=== PATIENT | female | born 1970 | race Caucasian/White ===

== ENCOUNTER 2016-10-04 23:16 | Emergency (ER) | payer OTHER ==
[~2016-10-04] VITALS: Ht 162.6 cm; Wt 94.0 kg
[2016-10-04 23:21] VITALS: Ht 162.6 cm; Wt 94.0 kg
[2016-10-05] MEDS ORDERED: SOD CHLORIDE 0.9% 1,000 ML IV STA (01:58)
[2016-10-05] MEDS ORDERED: morphine 4 MG/ML VIAL IV STA (01:58)
[2016-10-05] MEDS ORDERED: ONDANSETRON 4 MG INJ IV STA ×2 (01:58→02:54)
--- NOTE | 2016-10-05 02:49 | RADRPT ---
PROCEDURE: Right upper quadrant ultrasound. CLINICAL INDICATION: Abdominal pain. TECHNIQUE: Multiple real-time longitudinal and transverse images of the right upper quadrant of th e abdomen were acquired utilizing a curved array transducer. Images were reviewed on a high-resoluti on PACS workstation. COMPARISON: None. FINDINGS: The pancreas body is unremarkable. The pancreas head and tail are not well seen. The liver is normal in echogenicity. The liver measures 16.4 cm in length. No hepatic lesion or in trahepatic biliary ductal dilatation is seen. The portal vein is patent with hepatopetal flow. There is a 1.9 cm stone in the gallbladder neck. A sludge ball is also identified within the gallbl adder lumen. The gallbladder wall is not thickened. There is no pericholecystic fluid. The common b ile duct measures 4 mm in diameter, not dilated. The right kidney measures 10.7 cm in length. Renal echogenicity is normal. There is no hydronephro sis, urinary calculus, or renal mass. There is a 0.9 cm simple right renal cyst. The visualized portions of the aorta and IVC are unremarkable. IMPRESSION: 1. Cholelithiasis without evidence of cholecystitis. 2. No biliary dilatation. RPTAT: HTAR .Ketan Sparks MD, Date Time Electronically viewed and signed by .Ketan Sparks MD, on 10/05/2016 02:49 .R/
[2016-10-05] MEDS ORDERED: HYDROmorphONE 1 MG/ML SYG IV STA (02:54)
[2016-10-05 03:11] LABS: ADD UMIC YES; URINE BILIRUBIN (Dip) NEGATIVE (NEGATIVE); URINE BLOOD (Dip) TRACE (NEGATIVE); URINE COLOR LT. YELLOW (YELLOW); URINE GLUCOSE (Dip) NEGATIVE (NEGATIVE); URINE KETONES (Dip) NEGATIVE (NEGATIVE); URINE LEUKOCYTE ESTERASE (Dip) NEGATIVE (NEGATIVE); URINE NITRITE (Dip) NEGATIVE (NEGATIVE); URINE TOTAL PROTEIN (Dip) NEGATIVE (NEGATIVE); URINE UROBILINOGEN (Dip) 0.2 E.U./dL (0.1-1.0)
[2016-10-05 03:14] LABS: ALBUMIN 4.3 g/dl (3.3-4.9)
[2016-10-05 03:16] LABS: CREATININE 0.64 mg/dl (0.44-1.00)
[2016-10-05 03:17] LABS: ALBUMIN/GLOBULIN RATIO 1.26; CALCIUM 9.1 mg/dl (8.4-10.2); TOTAL PROTEIN 7.7 g/dl (6.1-8.1)
[2016-10-05 03:30] LABS: BASOPHIL # 0.1 10^3/ul (0.0-0.1); BASOPHILS % 0.5 % (0.0-2.0); EOSINOPHILS # 0.4 10^3/ul (0.0-0.5); EOSINOPHILS % 3.1 % (0.0-7.0); HEMATOCRIT 38.5 % (37.0-47.0); LYMPHOCYTES # 3.5 10^3/ul (0.8-2.9); LYMPHOCYTES % 31.2 % (15.0-51.0); MEAN CORPUSCULAR HEMOGLOBIN 30.2 pg (29.0-33.0); MEAN CORPUSCULAR HGB CONC 33.7 g/dl (32.0-37.0); MEAN CORPUSCULAR VOLUME 89.4 fl (82.0-101.0); MEAN PLATELET VOLUME 8.9 fl (7.4-10.4); MONOCYTE # 0.7 10^3/ul (0.3-0.9); MONOCYTES % 6.4 % (0.0-11.0); NEUTROPHIL # 6.6 10^3/ul (1.6-7.5); NEUTROPHILS % 58.8 % (39.0-77.0); PLATELET COUNT 326 10^3/UL (140-440); RED CELL DISTRIBUTION WIDTH 13.8 % (11.5-14.5); UNCORRECTED WBC 11.3 10^3/ul (4.8-10.8); WHITE BLOOD COUNT 11.3 10^3/ul (4.8-10.8)
[2016-10-05 03:32] LABS: CONDITION 1
[2016-10-05 03:43] LABS: BACTERIA,URINE MODERATE; SQUAMOUS EPITHELIAL CELL,UR FEW; URINE RBCS 0-2 /HPF (0)
[2016-10-05] MEDS ORDERED: ONDA4TAB14 PO (03:46)
[2016-10-05] MEDS ORDERED: HYDR-902 PO (03:46)
[2016-10-05 03:54] VITALS: BP 124/70; PULSE 70; RESP 16; TEMP 98.4
--- NOTE | 2016-10-05 03:54 | ERD ---
ER Documentation Chief Complaint Date/Time DATE: 10/05/16 TIME: 03:52 Chief Complaint RUQ abd pain - hx- gall stones HPI Patient is a 45-year-old female who has a history of gallstones complaining of right upper quadrant abdominal pain. Pain is 10 out of 10 and has been going on for 2 days but got worse this evening. At 8 PM she took Tylenol 3 which did not help. She admits to nausea but no vomiting. Denies fever. Pain is worse with food. Denies any urinary symptoms. ROS All systems reviewed and are negative except as per history of present illness. Medications Home Meds Active Scripts Ondansetron (Ondansetron Odt) 4 Mg Tab.rapdis, 4 MG PO Q6H Y for NAUSEA AND/OR VOMITING, #20 TAB Prov:HEIDE RIVERA PA-C 10/05/16 Hydrocodone/Acetaminophen ([place] 10-325 Tablet) 1 Each Tablet, 1 TAB PO Q6H Y for PAIN, #20 TAB Prov:HEIDE RIVERA PA-C 10/05/16 Allergies Allergies: Coded Allergies: pseudoephedrine (Verified Allergy, Unknown, 10/04/16) PMhx/Soc History of Surgery: No Anesthesia Reaction: No Hx Neurological Disorder: No Hx Respiratory Disorders: No Hx Cardiac Disorders: No Hx Psychiatric Problems: No Hx Miscellaneous Medical Probl: No Hx Substance Use: No Hx Tobacco Use: No Smoking Status: Never smoker FmHx Family History: No diabetes Physical Exam Vitals Vital Signs Date Time Temp Pulse Resp B/P Pulse Ox O2 Delivery O2 Flow Rate FiO2 10/04/16 23:21 98.4 87 20 123/64 99 Physical Exam General: well developed, well nourished, alert, nontoxic, no distress Head: normocephalic, atraumatic Neck: Supple, nontender, no lymphadenopathy, no midline tenderness Respiratory: Clear to auscaultation bilaterally, speaks in full sentences, no use of accesory muscles or labored breathing, no rales, ronchi, or wheezing Cardiovascular: RRR, No murmurs GI: soft, , non distended, positive murphys sign, negative mcburneys point tenderness, no cva tenderness bilaterally, no rebound or guarding Back: no midline tenderness, no step offs or bony abnormalities, sensation to light touch in tact Result Diagram: 10/05/1622910/05/16229 Results 24 hrs Laboratory Tests Test 10/05/16 02:15 10/05/16 02:30 Urine Bacteria MODERATE Urine Bilirubin NEGATIVE Urine Clarity CLEAR Urine Color LT. YELLOW Urine Glucose NEGATIVE% Urine Hemoglobin TRACE Urine Ketones NEGATIVE Urine Leukocyte Esterase NEGATIVE Urine Microscopic RBC 0-2/HPF Urine Microscopic WBC 0-2/HPF Urine Nitrite NEGATIVE Urine Specific Palo >=1.030 Urine Squamous Epithelial Cells FEW Urine Total Protein NEGATIVE Urine Urobilinogen 0.2 E.U./dL Urine pH 6.0 Alanine Aminotransferase (ALT/SGPT) 38IU/L Albumin 4.3g/dl Albumin/Globulin Ratio 1.26 Alkaline Phosphatase 95IU/L Anion Gap 19 Aspartate Amino Transf (AST/SGOT) 21IU/L Basophils # 0.110^3/ul Basophils % 0.5% Blood Urea Nitrogen 12mg/dl Calcium Level 9.1mg/dl Carbon Dioxide Level 22mmol/L Chloride Level 108mmol/L Creatinine 0.64mg/dl Direct Bilirubin 0.00mg/dl Eosinophils # 0.410^3/ul Eosinophils % 3.1% Globulin 3.40g/dl Glucose Level 86mg/dl Hematocrit 38.5% Hemoglobin 13.0g/dl Indirect Bilirubin 0.0mg/dl Lipase 106U/L Lymphocytes # 3.510^3/ul Lymphocytes % 31.2% Mean Corpuscular Hemoglobin 30.2pg Mean Corpuscular Hemoglobin Concent 33.7g/dl Mean Corpuscular Volume 89.4fl Mean Platelet Volume 8.9fl Monocytes # 0.710^3/ul Monocytes % 6.4% Neutrophils # 6.610^3/ul Neutrophils % 58.8% Nucleated Red Blood Cells # 0.010^3/ul Nucleated Red Blood Cells % 0.0/100WBC Platelet Count 74381^3/UL Potassium Level 4.0mmol/L Red Blood Count 4.3010^6/ul Red Cell Distribution Width 13.8% Sodium Level 145mmol/L Total Bilirubin 0.0mg/dl Total Protein 7.7g/dl White Blood Count 11.310^3/ul Current Medications Medications (Trade) Dose Ordered Sig/Danitza Route PRN Reason Start Time Stop Time Status Last Admin Dose Admin Sodium Chloride (NS) 1,000 ml @ 1,000 mls/hr Q1H STAT IV 10/05/16 01:58 10/05/16 02:57 DC 10/05/16 02:19 Morphine Sulfate (morphine) 4 mg ONCE STAT IV 10/05/16 01:58 10/05/16 02:00 DC 10/05/16 02:19 Ondansetron HCl (Zofran Inj) 4 mg ONCE STAT IV 10/05/16 01:58 10/05/16 02:01 DC 10/05/16 02:19 Hydromorphone HCl (Dilaudid) 1 mg ONCE STAT IV 10/05/16 02:54 10/05/16 02:55 DC 10/05/16 03:00 Ondansetron HCl (Zofran Inj) 4 mg ONCE STAT IV 10/05/16 02:54 10/05/16 02:55 DC 10/05/16 03:01 Procedures/MDM 45-year-old female presents for right upper quadrant abdominal pain. Her vital signs are all within normal limits and she is afebrile. Her labs were unremarkable. Ultrasound did show gallstones without any evidence of cholecystitis. She was given IV pain medications here and felt better. She was discharged with copy of her labs and ultrasound reports that she can follow with her primary care doctor for outpatient referral to general surgery for cholecystectomy. She was also given prescription for Zofran and [place] for pain control. Recommended this patient follow up with her primary care doctor within 48 hours or return to the emergency room for any worsening of symptoms. However this time I do believe there is suitable for outpatient management. I answered all their questions and they agreed with the plan and were discharged home. Departure Diagnosis: Primary Impression: Biliary colic Condition: Stable Patient Instructions: Biliary Colic With Gallstone (Confirmed) Additional Instructions: Call your primary care doctor TOMORROW for an appointment during the next 1-2 days.See the doctor sooner or return here if your condition worsens before your appointment time. HEIDE RIVERA PA-C Oct 05, 2016 03:54
== END 2016-10-05 04:00 | disposition home or self-care (01) ==
LOC: FTE 23:16
DX: K80.50 Calculus of bile duct without cholangitis or cholecystitis without obstruction (principal); R11.0 Nausea
CPT/HCPCS: 36415; 76705; 80053; 81001; 83690; 85025; 96374; 96375; 96376; J1170; J2270; J2405; J7030; Z7502; 81003

== ENCOUNTER 2017-12-24 05:15 | Emergency (ER) | END 2017-12-24 10:34 | disposition home or self-care (01) ==

== ENCOUNTER 2018-04-20 22:38 | Emergency (ER) | END 2018-04-21 01:03 | disposition home or self-care (01) ==

== ENCOUNTER 2018-06-17 23:10 | Emergency (ER) | END 2018-06-18 03:07 | disposition home or self-care (01) ==

== ENCOUNTER 2018-08-04 02:30 | Emergency (ER) | END 2018-08-04 04:00 | disposition home or self-care (01) ==

== ENCOUNTER 2018-10-08 14:05 | Emergency (ER) | payer OTHER ==
[~2018-10-08] VITALS: Wt 100.6 kg
[~2018-10-08 14:05] MED LIST: ALBU18HF INHALATION; AZIT250T PO; DICY10CA40 PO; ONDA4TAB14 PO; PRED20TA PO; TRAM50TA2 PO
--- NOTE | 2018-10-08 16:55 | ERD ---
ER Documentation Chief Complaint Chief Complaint ap HPI The patient is a 47-year-old female, presenting to the ER because of epigastric abdominal pain that began around 11 am. She had similar symptom previously, denies fever, chills, neck pain, chest pain, dyspnea, worse with eating, complains of intermittent diarrhea, denies hematemesis/hematochezia, dysuria. She does not smoke nor drink Past medical history: Cholelithiasis Past surgical history: 3 ROS All systems reviewed and are negative except as per history of present illness. Medications Home Meds Active Scripts Ondansetron (Ondansetron Odt) 4 Mg Tab.rapdis, 4 MG PO Q6H PRN for NAUSEA AND/OR VOMITING, #10 TAB Prov:MARIBELL YOUNG MD 10/08/18 Hydrocodone/Acetaminophen ([place] 5-325 Tablet) 1 Each Tablet, 1 TAB PO Q6H PRN for PAIN, #7 TAB Prov:MARIBELL YOUNG MD 10/08/18 Albuterol Sulfate* (Ventolin HFA*) 18 Gm Hfa.aer.ad, 2 PUFF INHALATION Q4H, #1 INHALER Prov:JEFF GUILLEN 08/04/18 Prednisone* (Prednisone*) 20 Mg Tab, 40 MG PO DAILY for 4 Days, TAB Prov:JEFF GUILLEN 08/04/18 Azithromycin* (Zithromax*) 250 Mg Tablet, 250 MG PO .ZPACK DIRECTED, #6 TAB TAKE 500 MG (2 TABS) THE FIRST DAY THEN 250 MG (1 TAB) DAYS 2-5 Prov:JEFF GUILLEN 08/04/18 Dicyclomine HCl (Dicyclomine HCl) 10 Mg Capsule, 10 MG PO TID PRN for ABDOMINAL CRAMPING, #20 CAP Prov:JOSHUA GOULD NP 06/18/18 Ondansetron (Ondansetron Odt) 4 Mg Tab.rapdis, 4 MG PO Q6H PRN for NAUSEA AND/OR VOMITING, #10 TAB Prov:JOSHUA GOULD NP 06/18/18 Tramadol HCl (Tramadol HCl) 50 Mg Tablet, 50 MG PO Q6 PRN for SEVERE PAIN LEVEL 7-10, #20 TAB Prov:JOSHUA GOULD NP 06/18/18 Tramadol HCl (Tramadol HCl) 50 Mg Tablet, 50 MG PO Q6 PRN for SEVERE PAIN LEVEL 7-10, #20 TAB Prov:JOSHUA GOULD NP 04/21/18 Reported Medications [none] Unknown Strength No Conflict Check 04/20/18 Allergies Allergies: Coded Allergies: pseudoephedrine (Verified Allergy, Unknown, 04/20/18) PMhx/Soc History of Surgery: Yes (c-sections x 3 ) Anesthesia Reaction: No Hx Neurological Disorder: No Hx Respiratory Disorders: No Hx Cardiac Disorders: No Hx Psychiatric Problems: No Hx Miscellaneous Medical Probl: Yes (GALLSTONES) Hx Alcohol Use: Yes (rare) Hx Substance Use: No Hx Tobacco Use: Yes Physical Exam Vitals Vital Signs Date Temp Pulse Resp B/P (MAP) Pulse Ox O2 O2 Flow FiO2 Time Delivery Rate 10/08/18 80 20 132/76 99 Room Air 18:13 (94) 10/08/18 97.2 78 18 130/77 99 14:08 (94) Physical Exam Const: No acute distress. Head: Atraumatic. Eyes: Normal Conjunctiva. ENT: Normal External Ears, Nose and Mouth. Neck: Full range of motion. No meningismus. Resp: Clear to auscultation bilaterally. Cardio: Regular rate and rhythm. Abd: Soft, non distended, normal bowel sounds, mild epigastric tenderness, no right lower quadrant/right upper quadrant/rigidity/rebound/CVA tenderness Skin: No petechiae or rashes. Back: No midline or flank tenderness. Ext: No cyanosis, or edema. Neur: Awake and alert. No focal deficit Psych: Normal Mood and Affect. Result Diagram: 10/08/18 1715 10/08/18 171 Results 24 hrs Laboratory Tests Test 10/08/18 17:15 10/08/18 17:28 10/08/18 17:31 White Blood Count 7.4 10^3/ul Red Blood Count 4.14 10^6/ul Hemoglobin 12.4 g/dl Hematocrit 36.9 % Mean Corpuscular Volume 89.1 fl Mean Corpuscular Hemoglobin 30.0 pg Mean Corpuscular Hemoglobin Concent 33.6 g/dl Red Cell Distribution Width 12.6 % Platelet Count 283 10^3/UL Mean Platelet Volume 9.3 fl Immature Granulocytes % 0.100 % Neutrophils % 58.0 % Lymphocytes % 31.9 % Monocytes % 7.0 % Eosinophils % 2.7 % Basophils % 0.3 % Nucleated Red Blood Cells % 0.0 /100WBC Immature Granulocytes # 0.010 10^3/ul Neutrophils # 4.3 10^3/ul Lymphocytes # 2.4 10^3/ul Monocytes # 0.5 10^3/ul Eosinophils # 0.2 10^3/ul Basophils # 0.0 10^3/ul Nucleated Red Blood Cells # 0.0 10^3/ul Sodium Level 138 mmol/L Potassium Level 4.1 mmol/L Chloride Level 107 mmol/L Carbon Dioxide Level 23 mmol/L Anion Gap 8 Blood Urea Nitrogen 14 mg/dl Creatinine 0.60 mg/dl Est Glomerular Filtrat Rate mL/min > 60 mL/min Glucose Level 97 mg/dl Calcium Level 9.4 mg/dl Total Bilirubin 0.1 mg/dl Direct Bilirubin 0.00 mg/dl Indirect Bilirubin 0.1 mg/dl Aspartate Amino Transf (AST/SGOT) 26 IU/L Alanine Aminotransferase (ALT/SGPT) 32 IU/L Alkaline Phosphatase 85 IU/L Total Protein 7.2 g/dl Albumin 4.1 g/dl Globulin 3.10 g/dl Albumin/Globulin Ratio 1.32 Lipase 34 U/L Bedside Urine pH (LAB) 5.5 Bedside Urine Protein (LAB) 1+ Bedside Urine Glucose (UA) Negative Bedside Urine Ketones (LAB) Negative Bedside Urine Blood 3+ Bedside Urine Nitrite (LAB) Negative Bedside Urine Leukocyte Esterase (L Negative POC Beta HCG, Qualitative NEGATIVE Current Medications Medications Dose Sig/Danitza Start Time Status Last (Trade) Ordered Route PRN Stop Time Admin Dose Reason Admin Sodium 1,000 ml @ Q1H ONCE 10/08/18 DC 10/08/18 Chloride 1,000 mls/hr IV 17:00 10/08/18 17:19 17:59 Morphine 4 mg ONCE STAT 10/08/18 DC 10/08/18 Sulfate IV 17:00 10/08/18 17:19 (morphine) 17:02 Ondansetron 4 mg ONCE STAT 10/08/18 DC 10/08/18 HCl (Zofran IV 17:00 10/08/18 17:19 Inj) 17:02 Procedures/[place]M [place] [address] Radiology Main Line: [phone] DIAGNOSTIC IMAGING REPORT Patient: MATTHIAS ROCK : 1970 Age: 47 Sex: F [id number] [id number] DOS: 10/08/18 1658 Ordering MD: LYLY MARSHALL MD Location: E/R Room/Bed: PROCEDURE: US Abdomen (right upper quadrant). CLINICAL INDICATION: Abdominal pain. TECHNIQUE: Multiple real-time longitudinal and transverse images of the right upper quadrant of the abdomen were acquired utilizing a curved array transducer. Images were reviewed on a high-resolution PACS workstation. COMPARISON: None FINDINGS: The liver is normal in size with a coarsened echotexture suggesting steatosis. without focal mass or intrahepatic biliary dilatation. There is normal hepatopedal flow within the main portal vein. The gallbladder is well displayed and contains a moderate size echogenic, shadowing calculus. There is no wall thickening. The common bile duct measures 3.0 mm in maximal dimension. The visualized portions of the pancreas are unremarkable with obscuration of the tail of the pancreas. No free fluid is identified. The right kidney measures 10.3 cm in length. There is normal echogenicity within the right kidney. There is no perinephric fluid collection. No hydronephrosis, mass, or calculus is seen. IMPRESSION: 1. Coarse hepatic echotexture suggesting diffuse steatosis. 2. Cholelithiasis without evidence of gallbladder wall thickening or biliary tree dilatation. RPTAT: AACC Physician Moshe Date Time Electronically viewed and signed by Physician Moshe on 10/08/2018 17:32 JH/ CC: LYLY MARSHALL MD [id number] MEDICAL MAKING DECISION: The patient is a 47-year-old female, presenting with acute biliary colic, hematuria. She was treated with morphine 4 mg IV for pain, Zofran 4 mg IV for nausea, 1 L normal saline for clinical dehydration with good response, is stable for outpatient follow-up The differential diagnoses considered include but are not limited to cholelithiasis, cholecystitis, choledocholithiasis, cholangitis, pancreatitis, hepatitis, gastritis, peptic ulcer disease, gastric ulcer, appendicitis, cystitis, diverticulitis, partial small bowel obstruction. Departure Diagnosis: Primary Impression: Biliary colic Additional Impression: Hematuria Condition: Good Comments She was discharged with 5 tablets of [place], Zofran ODT I discussed the findings with the patient. I advised the patient to follow-up with the local surgeon physician Dr Gray in about 2-3 days, sooner if needed and return if any concern. Disclaimer: Inadvertent spelling and grammatical errors are likely due to EHR/dictation software use and do not reflect on the overall quality of patient care. Also, please note that the electronic time recorded on this note does not necessarily reflect the actual time of the patient encounter. MARIBELL YOUNG MD Oct 08, 2018 16:55
[2018-10-08] MEDS ORDERED: morphine 4 MG/ML VIAL IV STA (17:00)
[2018-10-08] MEDS ORDERED: ONDANSETRON 4 MG INJ IV STA (17:00)
[2018-10-08] MEDS ORDERED: SOD CHLORIDE 0.9% 1,000 ML IV ONE (17:00)
[2018-10-08] MEDS ORDERED: HYDR-4011 PO (18:01)
[2018-10-08] MEDS ORDERED: ONDA4TAB14 PO (18:01)
[2018-10-08 18:13] VITALS: BP 132/76; PULSE 80; RESP 20
== END 2018-10-08 18:02 | disposition home or self-care (01) ==
LOC: E/R 14:05
DX: K80.50 Calculus of bile duct without cholangitis or cholecystitis without obstruction (principal); R31.9 Hematuria, unspecified; Z87.891 Personal history of nicotine dependence
CPT/HCPCS: 36415; 76705; 80053; 81003; 81025; 83690; 85025; 96374; 96375; J2270; J2405; J7030; Z7502

== ENCOUNTER 2018-12-09 22:03 | Emergency (ER) | payer OTHER ==
[~2018-12-09] VITALS: Wt 105.8 kg
[~2018-12-09 22:03] MED LIST changes: +HYDR-4011 PO
[2018-12-09 22:12] VITALS: BP 211/96; PULSE 98; RESP 20
[2018-12-10] MEDS ORDERED: LIDOCAINE 1% (MPF) 5 ML VIAL INJ ONE (06:30)
[2018-12-10] MEDS ORDERED: HYDROCODONE/APAP (5/325) TAB PO ONE (06:30)
[2018-12-10] MEDS ORDERED: CEFTRIAXONE 1 GM INJ IM ONE (06:30)
[2018-12-10] MEDS ORDERED: CIPR500T4 PO (06:52)
[2018-12-10] MEDS ORDERED: PHEN-538 PO (06:53)
[2018-12-10] MEDS ORDERED: HYDR-4011 PO (06:53)
--- NOTE | 2018-12-10 07:47 | ERD ---
ER Documentation Chief Complaint Chief Complaint HEMATURIA/ PELVIC PAIN X'S 1 DAY HPI 47-year-old female presenting with hematuria and pelvic pain times 1 day. Patient states it has burning with urination. She has developed hematuria this morning. Had tactile fever at home but has not taken medications. Medical history of gallstones. Allergy to Sudafed. Surgical history . Social history denies ROS All systems reviewed and are negative except as per history of present illness. Medications Home Meds Active Scripts Hydrocodone/Acetaminophen ([place] 5-325 Tablet) 1 Each Tablet, 1 TAB PO Q6H PRN for PAIN, #7 TAB Prov:SUSAN GALE PA-C 12/10/18 Phenazopyridine Hcl* (Pyridium*) 200 Mg Tab, 200 MG PO TID PRN for URINARY PAIN, #6 TAB Prov:SUSAN GALE PA-C 12/10/18 Ciprofloxacin Hcl* (Ciprofloxacin Hcl*) 500 Mg Tablet, 500 MG PO BID for 7 Days, TAB Prov:SUSAN GALE PA-C 12/10/18 Ondansetron (Ondansetron Odt) 4 Mg Tab.rapdis, 4 MG PO Q6H PRN for NAUSEA AND/OR VOMITING, #10 TAB Prov:MARIBELL YOUNG MD 10/08/18 Hydrocodone/Acetaminophen ([place] 5-325 Tablet) 1 Each Tablet, 1 TAB PO Q6H PRN for PAIN, #7 TAB Prov:MARIBELL YOUNG MD 10/08/18 Albuterol Sulfate* (Ventolin HFA*) 18 Gm Hfa.aer.ad, 2 PUFF INHALATION Q4H, #1 INHALER Prov:JEFF GUILLEN 08/04/18 Prednisone* (Prednisone*) 20 Mg Tab, 40 MG PO DAILY for 4 Days, TAB Prov:JEFF GUILLEN 08/04/18 Azithromycin* (Zithromax*) 250 Mg Tablet, 250 MG PO .SERA DIRECTED, #6 TAB TAKE 500 MG (2 TABS) THE FIRST DAY THEN 250 MG (1 TAB) DAYS 2-5 Prov:JEFF GUILLEN 08/04/18 Dicyclomine HCl (Dicyclomine HCl) 10 Mg Capsule, 10 MG PO TID PRN for ABDOMINAL CRAMPING, #20 CAP Prov:JOSHUA GOULD NP 06/18/18 Ondansetron (Ondansetron Odt) 4 Mg Tab.rapdis, 4 MG PO Q6H PRN for NAUSEA AND/OR VOMITING, #10 TAB Prov:JOSHUA GOULD NP 06/18/18 Tramadol HCl (Tramadol HCl) 50 Mg Tablet, 50 MG PO Q6 PRN for SEVERE PAIN LEVEL 7-10, #20 TAB Prov:JOSHUA GOULD [employer] 06/18/18 Tramadol HCl (Tramadol HCl) 50 Mg Tablet, 50 MG PO Q6 PRN for SEVERE PAIN LEVEL 7-10, #20 TAB Prov:JOSHUA GOULD [employer] 04/21/18 Reported Medications [none] Unknown Strength No Conflict Check 04/20/18 Allergies Allergies: Coded Allergies: pseudoephedrine (Verified Allergy, Unknown, 04/20/18) PMhx/Soc History of Surgery: Yes (c-sections x 3 ) Anesthesia Reaction: No Hx Neurological Disorder: No Hx Respiratory Disorders: No Hx Cardiac Disorders: No Hx Psychiatric Problems: No Hx Miscellaneous Medical Probl: Yes (GALLSTONES) Hx Alcohol Use: Yes (rare) Hx Substance Use: No Hx Tobacco Use: Yes Smoking Status: Former smoker FmHx Family History: No diabetes, No coronary disease, No other Physical Exam Vitals Vital Signs Date Temp Pulse Resp B/P (MAP) Pulse Ox O2 O2 Flow FiO2 Time Delivery Rate 12/09/18 99.0 98 20 211/96 98 22:12 (134) Physical Exam GENERAL: The patient is well-appearing, well-nourished, in no acute distress CHEST: Clear to auscultation bilaterally. There are no rales, wheezes or rhonchi. HEART: Regular rate and rhythm. No murmurs, clicks, rubs or gallops. ABDOMEN:Soft and nondistended. Good bowel sounds. No rebound or guarding. No gross peritonitis. No gross organomegaly or masses. Mild tenderness palpation over the suprapubic region. BACK: Questionable CVA tenderness of the right flank. Results 24 hrs Laboratory Tests Test 12/10/18 06:45 12/10/18 06:47 Bedside Urine pH (LAB) 5.0 Bedside Urine Protein (LAB) Negative Bedside Urine Glucose (UA) Negative Bedside Urine Ketones (LAB) Negative Bedside Urine Blood 3+ Bedside Urine Nitrite (LAB) Positive Bedside Urine Leukocyte Esterase (L 2+ POC Beta HCG, Qualitative NEGATIVE Current Medications Medications Dose Sig/Danitza Start Time Status Last (Trade) Ordered Route PRN Stop Time Admin Dose Reason Admin 1 tab ONCE ONCE 12/10/18 DC 12/10/18 Acetaminophen PO 06:30 06:39 / 12/10/18 06:31 Hydrocodone Bitart ([place] (5/325)) Ceftriaxone 1 gm ONCE ONCE 12/10/18 DC 12/10/18 Sodium IM 06:30 06:39 (Rocephin) 12/10/18 06:31 Lidocaine 5 ml ONCE ONCE 12/10/18 DC 12/10/18 (Xylocaine INJ 06:30 06:39 1% (Mpf)) 12/10/18 06:31 Procedures/MDM ER course: Rocephin given ED. Positive urinalysis collected. MDM: 47-year-old female presenting with findings discussed with urinary tract infection. I have low suspicion for pyelonephritis. Patient was given Rocephin in the ED given she developed hematuria with some questionable CVA tenderness however there is no fever on exam. I will treat with Cipro however dosing for UTI is appropriate at this time. I have low suspicion for sepsis. I have low suspicion for acute abdominal emergency. Patient abdominal exam is non- concerning. Patient is discharged stricter precautions and told to follow-up with primary care within 1-2 days for close evaluation. All questions answered at discharge Departure Diagnosis: Primary Impression: UTI (urinary tract infection) Condition: Stable Patient Instructions: Understanding Urinary Tract Infections (UTIs) Referrals: [facility] YOU HAVE RECEIVED A MEDICAL SCREENING EXAM AND THE RESULTS INDICATE THAT YOU DO NOT HAVE A CONDITION THAT REQUIRES URGENT TREATMENT IN THE EMERGENCY DEPARTMENT. FURTHER EVALUATION AND TREATMENT OF YOUR CONDITION CAN WAIT UNTIL YOU ARE SEEN IN YOUR DOCTORS OFFICE WITHIN THE NEXT 1-2 DAYS. IT IS YOUR RESPONSIBILITY TO MAKE AN APPOINTMENT FOR FOLOW-UP CARE. IF YOU HAVE A PRIMARY DOCTOR --you should call your primary doctor and schedule an appointment IF YOU DO NOT HAVE A PRIMARY DOCTOR YOU CAN CALL OUR PHYSICIAN REFERRAL HOTLINE AT IF YOU CAN NOT AFFORD TO SEE A PHYSICIAN YOU CAN CHOSE FROM THE FOLLOWING [facility] [address] [facility] [address] [facility] [address] [facility] [address] [facility] [address] [facility]. [facility] [address] Additional Instructions: FOLLOW UP WITH YOUR PRIMARY CARE PHYSICIAN TOMORROW.Return to this facility if you are not improving as expected. SUSAN GALE PA-C Dec 10, 2018 07:47
== END 2018-12-10 06:59 | disposition home or self-care (01) ==
LOC: FTE 22:03
DX: N39.0 Urinary tract infection, site not specified (principal); Z87.891 Personal history of nicotine dependence
CPT/HCPCS: 81003; 81025; 96372; J0696; Z7502; Z7610

== ENCOUNTER 2018-12-18 09:02 | Emergency (ER) | payer OTHER ==
[~2018-12-18] VITALS: Ht 167.6 cm; Wt 103.6 kg
[~2018-12-18 09:02] MED LIST changes: +CIPR500T4 PO; +PHEN-538 PO
[2018-12-18 09:11] VITALS: BP 128/58; PULSE 78; RESP 20; Ht 167.6 cm; Wt 103.6 kg
[2018-12-18] MEDS ORDERED: KETOROLAC 30 MG INJ IV STA (09:34)
[2018-12-18] MEDS ORDERED: SOD CHLORIDE 0.9% 1,000 ML IV STA (09:34)
[2018-12-18] MEDS ORDERED: ONDANSETRON 4 MG INJ IV STA (09:34)
[2018-12-18] MEDS ORDERED: DIPHENHYDRAMINE 50 MG INJ IV STA (09:34)
[2018-12-18] MEDS ORDERED: CEFTRIAXONE 1 GM/50 ML (PMX) 50 ML IVPB ONE (11:00)
[2018-12-18] MEDS ORDERED: BUTA1CAP38 PO (11:26)
[2018-12-18] MEDS ORDERED: CIPR500T4 PO (11:26)
[2018-12-18] MEDS ORDERED: MECL12.574 PO (11:26)
--- NOTE | 2018-12-18 15:19 | ERD ---
ER Documentation Chief Complaint Chief Complaint Complains of a severe headache since last night HPI 48-year-old female presenting with severe headache times last night. She has not taken medications today for her symptoms. She has been taking antibiotics for urinary tract infection which she believes is Keflex. She denies any fevers. Denies visual changes. Medical history is gallstones. Allergy to Sudafed. Surgical history . Social history stopped smoking 6 months ago. ROS All systems reviewed and are negative except as per history of present illness. Medications Home Meds Active Scripts Meclizine Hcl* (Antivert*) 12.5 Mg Tab, 12.5 MG PO Q6H PRN for DIZZINESS, #20 TAB Prov:SUSAN GALE PA-C 12/18/18 Pwhaacsdcp-Lwepkxvqwyxur-Szqnetwn* (Fioricet*) 50-300-40 Mg Capsule, 1 CAP PO Q4H PRN for HEADACHE, #10 CAP Prov:SUSAN GALE PA-C 12/18/18 Ciprofloxacin Hcl* (Ciprofloxacin Hcl*) 500 Mg Tablet, 500 MG PO BID for 7 Days, TAB Prov:SUSAN GALE PA-C 12/18/18 Hydrocodone/Acetaminophen (Gallaway 5-325 Tablet) 1 Each Tablet, 1 TAB PO Q6H PRN for PAIN, #7 TAB Prov:SUSAN GALE PA-C 12/10/18 Phenazopyridine Hcl* (Pyridium*) 200 Mg Tab, 200 MG PO TID PRN for URINARY PAIN, #6 TAB Prov:SUSAN GALE PA-C 12/10/18 Ciprofloxacin Hcl* (Ciprofloxacin Hcl*) 500 Mg Tablet, 500 MG PO BID for 7 Days, TAB Prov:SUSAN GALE PA-C 12/10/18 Ondansetron (Ondansetron Odt) 4 Mg Tab.rapdis, 4 MG PO Q6H PRN for NAUSEA AND/OR VOMITING, #10 TAB Prov:MARIBELL YOUNG MD 10/08/18 Hydrocodone/Acetaminophen (Gallaway 5-325 Tablet) 1 Each Tablet, 1 TAB PO Q6H PRN for PAIN, #7 TAB Prov:MARIBELL YOUNG MD 10/08/18 Albuterol Sulfate* (Ventolin HFA*) 18 Gm Hfa.aer.ad, 2 PUFF INHALATION Q4H, #1 INHALER Prov:JEFF GUILLEN. 08/04/18 Prednisone* (Prednisone*) 20 Mg Tab, 40 MG PO DAILY for 4 Days, TAB Prov:JEFF GUILLEN. 08/04/18 Azithromycin* (Zithromax*) 250 Mg Tablet, 250 MG PO .ZPACK DIRECTED, #6 TAB TAKE 500 MG (2 TABS) THE FIRST DAY THEN 250 MG (1 TAB) DAYS 2-5 Prov:JEFF GUILLEN. 08/04/18 Dicyclomine HCl (Dicyclomine HCl) 10 Mg Capsule, 10 MG PO TID PRN for ABDOMINAL CRAMPING, #20 CAP Prov:JOSHUA GOULD NP 06/18/18 Ondansetron (Ondansetron Odt) 4 Mg Tab.rapdis, 4 MG PO Q6H PRN for NAUSEA AND/OR VOMITING, #10 TAB Prov:JOSHUA GOULD NP 06/18/18 Tramadol HCl (Tramadol HCl) 50 Mg Tablet, 50 MG PO Q6 PRN for SEVERE PAIN LEVEL 7-10, #20 TAB Prov:JOSHUA GOULD NP 06/18/18 Tramadol HCl (Tramadol HCl) 50 Mg Tablet, 50 MG PO Q6 PRN for SEVERE PAIN LEVEL 7-10, #20 TAB Prov:JOSHUA GOULD NP 04/21/18 Reported Medications [none] Unknown Strength No Conflict Check 04/20/18 Allergies Allergies: Coded Allergies: pseudoephedrine (Verified Allergy, Unknown, 04/20/18) PMhx/Soc History of Surgery: Yes (c-sections x 3 ) Anesthesia Reaction: No Hx Neurological Disorder: No Hx Respiratory Disorders: No Hx Cardiac Disorders: No Hx Psychiatric Problems: No Hx Miscellaneous Medical Probl: Yes (GALLSTONES,UTI) Hx Alcohol Use: Yes (rare) Hx Substance Use: No Hx Tobacco Use: No Smoking Status: Former smoker FmHx Family History: No diabetes, No coronary disease, No other Physical Exam Vitals Vital Signs Date Temp Pulse Resp B/P (MAP) Pulse Ox O2 O2 Flow FiO2 Time Delivery Rate 12/18/18 98.7 78 20 128/58 99 09:11 (81) Physical Exam GENERAL: The patient is well-appearing, well-nourished, in no acute distress HEENT: Atraumatic. Conjunctivae are pink. Pupils equal, round, and reactive to light. There is no scleral icterus. Tympanic membranes clear bilaterally. Oropharynx clear. No nystagmus or photophobia. NECK: C-spine is soft and supple. There is no meningismus. There is no cervical lymphadenopathy. CHEST: Clear to auscultation bilaterally. There are no rales, wheezes or rhonchi. HEART: Regular rate and rhythm. No murmurs, clicks, rubs or gallops. EXTREMITIES: Equal pulses bilaterally. There is no peripheral clubbing, cyanosis or edema. No focal swelling or erythema. Full range of motion. Grossly neurovascularly intact. NEUROLOGIC: Alert and oriented. Cranial nerves II through XII intact. Motor strength in all 4 extremities with 5 out of 5 strength. Sensation grossly intact. Normal speech and gait. Results 24 hrs Laboratory Tests Test 12/18/18 10:01 12/18/18 10:02 Bedside Urine pH (LAB) 5.5 Bedside Urine Protein (LAB) Negative Bedside Urine Glucose (UA) Negative Bedside Urine Ketones (LAB) Negative Bedside Urine Blood Negative Bedside Urine Nitrite (LAB) Positive Bedside Urine Leukocyte Esterase (L Negative POC Beta HCG, Qualitative NEGATIVE Current Medications Medications Dose Sig/Danitza Start Time Status Last (Trade) Ordered Route PRN Stop Time Admin Dose Reason Admin Sodium 1,000 ml @ Q1H STAT 12/18/18 DC 12/18/18 Chloride 1,000 mls/hr IV 09:34 10:21 12/18/18 10:33 Ondansetron 4 mg ONCE STAT 12/18/18 DC 12/18/18 HCl (Zofran IV 09:34 10:17 Inj) 12/18/18 09:35 Ketorolac 30 mg ONCE STAT 12/18/18 DC 12/18/18 Tromethamine IV 09:34 10:17 (Toradol) 12/18/18 09:35 25 mg ONCE STAT 12/18/18 DC 12/18/18 Diphenhydrami IV 09:34 10:17 ne HCl 12/18/18 09:35 (Benadryl) Ceftriaxone 50 ml @ ONCE ONCE 12/18/18 DC 12/18/18 Sodium 100 mls/hr IVPB 11:00 10:54 12/18/18 11:29 Procedures/MDM DIAGNOSTIC IMAGING REPORT Patient: MATTHIAS ROCK : 1970 Age: 48 Sex: F MR #: [id number] [facility] #: [id number] DOS: 12/18/18 0934 Ordering MD: AMANDA GALE PA-C Location: [facility]TE Room/Bed: PROCEDURE: CT Brain without contrast. CLINICAL INDICATION: Headache. TECHNIQUE: A CT of the brain without contrast was performed utilizing axial sections from the skull base through the vertex. One or more the following does reduction techniques were utilized: Automated exposure control, adjustment of the mA/ or kV according to patient's size, or use of iterative reconstruction technique. Total exam CTDIvol is 38 MGy and DLP is 634 mGy-cm. DICOM images are available. COMPARISON: Brain CT 04/20/2018. FINDINGS: The ventricles and sulci are age-appropriate. There is no intracranial hemorrhage, mass effect or midline shift. No abnormal intra-axial or extra- axial fluid collections are seen. The fischer/white matter differentiation is preserved. No acute skull abnormality is noted. The visualized paranasal sinuses are essentially clear. IMPRESSION: 1. No acute intracranial hemorrhage, transcortical infarction or mass effect. ER Course: 1 L normal saline given ED. Benadryl and Toradol given ED. Urine sent for culture. Urinalysis shows signs of infection. Rocephin given in ED. Upon reevaluation patient symptoms improved. MDM: 48-year-old female presenting with headache. Patient still has a urinary tract infection so is will change antibiotics. I have low suspicion for underlying hemorrhage or neuro deficit. Exam is non-concerning. Patient is discharged stricter precautions and told to follow-up with primary care within 1-2 days for close evaluation. Patient is told if symptoms change or worsen to return the ER immediately. All questions answered at discharge Departure Diagnosis: Primary Impression: Headache Additional Impression: UTI (urinary tract infection) Condition: Stable Patient Instructions: Understanding Urinary Tract Infections (UTIs) Referrals: COMMUNITY CLINICS YOU HAVE RECEIVED A MEDICAL SCREENING EXAM AND THE RESULTS INDICATE THAT YOU DO NOT HAVE A CONDITION THAT REQUIRES URGENT TREATMENT IN THE EMERGENCY DEPARTMENT. FURTHER EVALUATION AND TREATMENT OF YOUR CONDITION CAN WAIT UNTIL YOU ARE SEEN IN YOUR DOCTORS OFFICE WITHIN THE NEXT 1-2 DAYS. IT IS YOUR RESPONSIBILITY TO MAKE AN APPOINTMENT FOR FOLOW-UP CARE. IF YOU HAVE A PRIMARY DOCTOR --you should call your primary doctor and schedule an appointment IF YOU DO NOT HAVE A PRIMARY DOCTOR YOU CAN CALL OUR PHYSICIAN REFERRAL HOTLINE AT IF YOU CAN NOT AFFORD TO SEE A PHYSICIAN YOU CAN CHOSE FROM THE FOLLOWING [facility] CLINICS [facility] [address] [facility] [address] [employer] [facility] [facility] [address] [facility] [address] [facility] [address] [facility]. [facility]. [address] Additional Instructions: FOLLOW UP WITH YOUR PRIMARY CARE PHYSICIAN TOMORROW.Return to this facility if you are not improving as expected. SUSAN GALE PA-C Dec 18, 2018 15:19
== END 2018-12-18 12:21 | disposition home or self-care (01) ==
LOC: FTE 09:02
DX: R51 Headache (principal); N39.0 Urinary tract infection, site not specified
CPT/HCPCS: 70450; 81003; 81025; 87086; J0696; J1200; J1885; J2405; J7030; 96361; 96365; 96375

== ENCOUNTER 2019-03-07 23:26 | Emergency (ER) | payer OTHER ==
[~2019-03-07] VITALS: Ht 152.4 cm; Wt 104.1 kg
[~2019-03-07 23:26] MED LIST changes: +BUTA1CAP38 PO; +MECL12.574 PO
[2019-03-07 23:29] VITALS: Ht 152.4 cm; Wt 104.1 kg
[2019-03-08] MEDS ORDERED: KETOROLAC 30 MG INJ IV STA (00:06)
[2019-03-08] MEDS ORDERED: SOD CHLORIDE 0.9% 1,000 ML IV STA (00:06)
[2019-03-08] MEDS ORDERED: ONDANSETRON 4 MG INJ IV STA (00:06)
[2019-03-08] MEDS ORDERED: NAPR-985 PO (00:20)
[2019-03-08] MEDS ORDERED: BEN25 PO (00:20)
[2019-03-08] MEDS ORDERED: ONDA4TAB14 PO (00:20)
--- NOTE | 2019-03-08 00:28 | ERD ---
ER Documentation Chief Complaint Chief Complaint BECK, DIZZY X'S 2 DAYS HPI 48-year-old female with no reported past medical history, history of gallstones who presents with complaint of occipital type headache over the past 2 days. Take associated with intermittent nausea and dizziness. Patient otherwise denies vomiting, blurry vision, eye pain or pressure, sinus type pressure, ear pain or ringing, recent illness, chest pain, shortness of breath, dyspnea, recent fall or injury. Pain rated 9 out of 10 at its worse. Has not had a good appetite. Had similar episode of headache and dizziness in November of this year. Had unremarkable CT of head done, patient sent home with symptomatic treatment which she reports improved her symptoms. She otherwise denies alcohol or drug abuse. At time of examination patient in no acute distress, nontoxic-appearing with normal triage vital signs. ROS All systems reviewed and are negative except as per history of present illness. Medications Home Meds Active Scripts Tdjslwthuh-Qrdzmhqmiailu-Egrlsnxz* (Fioricet*) 50-300-40 Mg Capsule, 1 CAP PO Q4H PRN for HEADACHE for 10 Days, CAP Prov:SAADIA PELLETIER PA-C 03/08/19 Ondansetron (Ondansetron Odt) 4 Mg Tab.rapdis, 4 MG PO Q6H PRN for NAUSEA AND/OR VOMITING, #10 TAB Prov:SAADIA PELLETIER PA-C 03/08/19 Naproxen* (Naprosyn*) 500 Mg Tablet, 500 MG PO BID PRN for PAIN AND/OR INFL AMMATION, #30 TAB Prov:SAADIA PELLETIER PA-C 03/08/19 Diphenhydramine Hcl* (Benadryl*) 25 Mg Cap, 25 MG PO Q6, #30 CAP Prov:SAADIA PELLETIER PA-C 03/08/19 Meclizine Hcl* (Antivert*) 12.5 Mg Tab, 12.5 MG PO Q6H PRN for DIZZINESS, #20 TAB Prov:SUSAN GALE PA-C 12/18/18 Qaxdsipvjo-Mhimzeovkbjmc-Nxsfyqez* (Fioricet*) 50-300-40 Mg Capsule, 1 CAP PO Q4H PRN for HEADACHE, #10 CAP Prov:SUSAN GALE PA-C 12/18/18 Ciprofloxacin Hcl* (Ciprofloxacin Hcl*) 500 Mg Tablet, 500 MG PO BID for 7 Days, TAB Prov:SUSAN GALE PA-C 12/18/18 Hydrocodone/Acetaminophen (Morris 5-325 Tablet) 1 Each Tablet, 1 TAB PO Q6H PRN for PAIN, #7 TAB Prov:SUSAN GALE PA-C 12/10/18 Phenazopyridine Hcl* (Pyridium*) 200 Mg Tab, 200 MG PO TID PRN for URINARY PAIN, #6 TAB Prov:SUSAN GALE PA-C 12/10/18 Ciprofloxacin Hcl* (Ciprofloxacin Hcl*) 500 Mg Tablet, 500 MG PO BID for 7 Days, TAB Prov:SUSAN GALE PA-C 12/10/18 Ondansetron (Ondansetron Odt) 4 Mg Tab.rapdis, 4 MG PO Q6H PRN for NAUSEA AND/OR VOMITING, #10 TAB Prov:MARIBELL YOUNG MD 10/08/18 Hydrocodone/Acetaminophen (Morris 5-325 Tablet) 1 Each Tablet, 1 TAB PO Q6H PRN for PAIN, #7 TAB Prov:MARIBELL YOUNG MD 10/08/18 Albuterol Sulfate* (Ventolin HFA*) 18 Gm Hfa.aer.ad, 2 PUFF INHALATION Q4H, #1 INHALER Prov:JEFF GUILLEN 08/04/18 Prednisone* (Prednisone*) 20 Mg Tab, 40 MG PO DAILY for 4 Days, TAB Prov:JEFF GUILLEN 08/04/18 Azithromycin* (Zithromax*) 250 Mg Tablet, 250 MG PO .SERA DIRECTED, #6 TAB TAKE 500 MG (2 TABS) THE FIRST DAY THEN 250 MG (1 TAB) DAYS 2-5 Prov:JEFF GUILLEN 08/04/18 Dicyclomine HCl (Dicyclomine HCl) 10 Mg Capsule, 10 MG PO TID PRN for ABDOMINAL CRAMPING, #20 CAP Prov:JOSHUA GOULD NP 06/18/18 Ondansetron (Ondansetron Odt) 4 Mg Tab.rapdis, 4 MG PO Q6H PRN for NAUSEA AND/OR VOMITING, #10 TAB Prov:BRYANNAJOSHUA INGRAM [employer] 06/18/18 Tramadol HCl (Tramadol HCl) 50 Mg Tablet, 50 MG PO Q6 PRN for SEVERE PAIN LEVEL 7-10, #20 TAB Prov:JOSHUA GOULDMateo SOCIAL GROUP WORKER 06/18/18 Tramadol HCl (Tramadol HCl) 50 Mg Tablet, 50 MG PO Q6 PRN for SEVERE PAIN LEVEL 7-10, #20 TAB Prov:BRYANNAJOSHUA INGRAM [employer] 04/21/18 Reported Medications [none] Unknown Strength No Conflict Check 04/20/18 Allergies Allergies: Coded Allergies: pseudoephedrine (Verified Allergy, Unknown, 04/20/18) PMhx/Soc History of Surgery: Yes (c-sections x 3 ) Anesthesia Reaction: No Hx Neurological Disorder: No Hx Respiratory Disorders: No Hx Cardiac Disorders: No Hx Psychiatric Problems: No Hx Miscellaneous Medical Probl: Yes (GALLSTONES,UTI) Hx Alcohol Use: Yes (rare) Hx Substance Use: No Hx Tobacco Use: No Smoking Status: Never smoker FmHx Family History: No diabetes, No coronary disease, No other Physical Exam Vitals Vital Signs Date Temp Pulse Resp B/P (MAP) Pulse Ox O2 O2 Flow FiO2 Time Delivery Rate 03/07/19 99.5 96 18 154/80 97 23:29 (104) Physical Exam I have reviewed the triage vital signs. Const: Well nourished, well developed, appears stated age Eyes: PERRL, no conjunctival injection HENT: NCAT, Neck supple without meningismus CV: RRR, Warm, well-perfused extremities RESP: CTAB, Unlabored respiratory effort GI: soft, non-tender, non-distended, no masses MSK: No gross deformities appreciated Skin: Warm, dry. No rashes Neuro: grossly non focal Psych: Appropriate mood and affect. Results 24 hrs Laboratory Tests Test 03/08/19 00:27 POC Beta HCG, Qualitative NEGATIVE Current Medications Medications Dose Sig/Danitza Start Time Status Last (Trade) Ordered Route PRN Stop Time Admin Dose Reason Admin Sodium 1,000 ml @ Q1H STAT 03/08/19 DC 03/08/19 Chloride 1,000 mls/hr IV 00:06 03/08/19 00:26 01:05 Ondansetron 4 mg ONCE STAT 03/08/19 DC 03/08/19 HCl (Zofran IV 00:06 03/08/19 00:26 Inj) 00:08 Ketorolac 30 mg ONCE STAT 03/08/19 DC 03/08/19 Tromethamine IV 00:06 03/08/19 00:33 (Toradol) 00:08 10 mg ONCE ONCE 03/08/19 DC 03/08/19 Dexamethasone IM 00:30 03/08/19 00:32 (Decadron) 00:31 Procedures/MDM This patient presents with a headache most consistent with primary headache. Differential diagnosis includes migraine versus tension type headache. No headache red flags. Neurologic exam without evidence of meningismus, focal neurologic findings. Presentation not consistent with acute intracranial bleed to include SAH (lack of risk factors, headache history). Presentation not consistent with acute PULLER THROUGH infection to include meningitis or brain abscess, Temporal arteritis unlikely, as is acute angle closure glaucoma given history and physical findings. Presentation not consistent with other acute, emergent causes of headache at this time. Plan to treat symptomatically with pain m edication. No indication for imaging/LP at this time. Plan: Toradol, Zofran, 1 L intravenous fluids Assessment: Patient with improvement in symptoms status post treatment, will discharge with appropriate pain medications, Zofran, Benadryl. Patient advised to follow-up with PMD. DISPOSITION PLAN: We discussed follow up with the patient's primary care doctor within 24 to 48 hours. Patient counseled regarding my diagnostic impression and care plan. Prior to discharge all questions answered. Pt agrees with treatment plan and understands strict return precautions. Precautionary instructions provided including instructions to return to the ER if not improving or for any worsening or changing symptoms or concerns. Disclaimer: Inadvertent spelling and grammatical errors are likely due to EHR/dictation software use and do not reflect on the overall quality of patient care. Also, please note that the electronic time recorded on this note does not necessarily reflect the actual time of the patient encounter. Departure Diagnosis: Primary Impression: Headache Condition: Stable Patient Instructions: Self-Care for Headaches Referrals: COMMUNITY CLINICS YOU HAVE RECEIVED A MEDICAL SCREENING EXAM AND THE RESULTS INDICATE THAT YOU DO NOT HAVE A CONDITION THAT REQUIRES URGENT TREATMENT IN THE EMERGENCY DEPARTMENT. FURTHER EVALUATION AND TREATMENT OF YOUR CONDITION CAN WAIT UNTIL YOU ARE SEEN IN YOUR DOCTORS OFFICE WITHIN THE NEXT 1-2 DAYS. IT IS YOUR RESPONSIBILITY TO MAKE AN APPOINTMENT FOR FOLOW-UP CARE. IF YOU HAVE A PRIMARY DOCTOR --you should call your primary doctor and schedule an appointment IF YOU DO NOT HAVE A PRIMARY DOCTOR YOU CAN CALL OUR PHYSICIAN REFERRAL HOTLINE AT IF YOU CAN NOT AFFORD TO SEE A PHYSICIAN YOU CAN CHOSE FROM THE FOLLOWING [facility] CLINICS [facility] [address] [facility] [address] [facility] [facility] [address] [address] [facility] [address] [facility] [facility] [facility] [address] [facility]. [facility] [address] Additional Instructions: Call your primary care doctor TOMORROW for an appointment during the next 2-3 days.See the doctor sooner or return here if your condition worsens before your appointment time. SAADIA PELLETIER PA-C Mar 08, 2019 00:28
[2019-03-08] MEDS ORDERED: DEXAMETHASONE 10 MG/ML 1 ML INJ IM ONE (00:30)
[2019-03-08] MEDS ORDERED: BUTA1CAP38 PO (00:31)
[2019-03-08 02:26] VITALS: BP 120/77; PULSE 68; RESP 18
== END 2019-03-08 02:28 | disposition home or self-care (01) ==
LOC: FTE 23:26
DX: R51 Headache (principal)
CPT/HCPCS: 81025; 96361; 96372; 96374; 96375; J1100; J1885; J2405; J7030; Z7502

== ENCOUNTER 2019-04-28 22:20 | Emergency (ER) | payer OTHER ==
[~2019-04-28] VITALS: Ht 154.9 cm; Wt 97.7 kg
[~2019-04-28 22:20] MED LIST changes: +BEN25 PO; +HYDR-3980 PO; +NAPR-985 PO
[2019-04-28 22:24] VITALS: Ht 154.9 cm; Wt 97.7 kg
[2019-04-29] MEDS ORDERED: SOD CHLORIDE 0.9% 500 ML IV STA (00:06)
[2019-04-29] MEDS ORDERED: ONDANSETRON 4 MG INJ IV STA (00:06)
[2019-04-29] MEDS ORDERED: morphine 4 MG/ML VIAL IV STA (00:06)
--- NOTE | 2019-04-29 01:26 | ERD ---
ER Documentation Chief Complaint Chief Complaint R flank pain radiating to R leg, nausea X 12 hrs HPI Is a 48-year female right upper quadrant abdominal pain rating to her back for 12 hours preset. She said after having had says when it started. Pain is mild to moderate intensity. Mild associated nausea. One episode of vomiting nonbilious. Denies any fevers or chills. Denies any other current complaints. ROS All systems reviewed and are negative except as per history of present illness. Medications Home Meds Active Scripts Ondansetron (Ondansetron Odt) 4 Mg Tab.rapdis, 4 MG PO Q6H PRN for NAUSEA AND/OR VOMITING, #10 TAB Prov:JEFF GUILLEN S. 04/29/19 Hydrocodone/Acetaminophen (Tupman 10-325 Tablet) 1 Each Tablet, 1 TAB PO Q6H PRN for PAIN, #7 TAB Prov:JEFF GUILLEN S. 04/29/19 Jgkjzgkkff-Dephpjdjyfniw-Cgjradvs* (Fioricet*) 50-300-40 Mg Capsule, 1 CAP PO Q4H PRN for HEADACHE for 10 Days, CAP Prov:SAADIA PELLETIER PA-C 03/08/19 Ondansetron (Ondansetron Odt) 4 Mg Tab.rapdis, 4 MG PO Q6H PRN for NAUSEA AND/OR VOMITING, #10 TAB Prov:SAADIA PELLETIER PA-C 03/08/19 Naproxen* (Naprosyn*) 500 Mg Tablet, 500 MG PO BID PRN for PAIN AND/OR INFLAMMATION, #30 TAB Prov:SAADIA PELLETIERC 03/08/19 Diphenhydramine Hcl* (Benadryl*) 25 Mg Cap, 25 MG PO Q6, #30 CAP Prov:SAADIA PELLETIER PA-C 03/08/19 Meclizine Hcl* (Antivert*) 12.5 Mg Tab, 12.5 MG PO Q6H PRN for DIZZINESS, #20 TAB Prov:SUSAN GALE PA-C 12/18/18 Egngywbhmd-Voepmwcvmkixp-Wyzjplqm* (Fioricet*) 50-300-40 Mg Capsule, 1 CAP PO Q4H PRN for HEADACHE, #10 CAP Prov:SUSAN GALE PA-C 12/18/18 Ciprofloxacin Hcl* (Ciprofloxacin Hcl*) 500 Mg Tablet, 500 MG PO BID for 7 Days, TAB Prov:SUSAN GALE PA-C 12/18/18 Hydrocodone/Acetaminophen (Tupman 5-325 Tablet) 1 Each Tablet, 1 TAB PO Q6H PRN for PAIN, #7 TAB Prov:SUSAN GALE PA-C 12/10/18 Phenazopyridine Hcl* (Pyridium*) 200 Mg Tab, 200 MG PO TID PRN for URINARY PAIN, #6 TAB Prov:SUSAN GALE PA-C 12/10/18 Ciprofloxacin Hcl* (Ciprofloxacin Hcl*) 500 Mg Tablet, 500 MG PO BID for 7 Days, TAB Prov:SUSAN GALE PA-C 12/10/18 Ondansetron (Ondansetron Odt) 4 Mg Tab.rapdis, 4 MG PO Q6H PRN for NAUSEA AND/OR VOMITING, #10 TAB Prov:MARIBELL YOUNG MD 10/08/18 Hydrocodone/Acetaminophen (Tupman 5-325 Tablet) 1 Each Tablet, 1 TAB PO Q6H PRN for PAIN, #7 TAB Prov:MARIBELL YOUNG MD 10/08/18 Albuterol Sulfate* (Ventolin HFA*) 18 Gm Hfa.aer.ad, 2 PUFF INHALATION Q4H, #1 INHALER Prov:JEFF GUILLEN 08/04/18 Prednisone* (Prednisone*) 20 Mg Tab, 40 MG PO DAILY for 4 Days, TAB Prov:JEFF GUILLEN 08/04/18 Azithromycin* (Zithromax*) 250 Mg Tablet, 250 MG PO .SERA DIRECTED, #6 TAB TAKE 500 MG (2 TABS) THE FIRST DAY THEN 250 MG (1 TAB) DAYS 2-5 Prov:JEFF GUILLEN 08/04/18 Dicyclomine HCl (Dicyclomine HCl) 10 Mg Capsule, 10 MG PO TID PRN for ABDOMINAL CRAMPING, #20 CAP Prov:JOSHUA GOULD NP 06/18/18 Ondansetron (Ondansetron Odt) 4 Mg Tab.rapdis, 4 MG PO Q6H PRN for NAUSEA AND/OR VOMITING, #10 TAB Prov:JOSHUA GOULD NP 06/18/18 Tramadol HCl (Tramadol HCl) 50 Mg Tablet, 50 MG PO Q6 PRN for SEVERE PAIN LEVEL 7-10, #20 TAB Prov:JOSHUA GOULD NP 06/18/18 Tramadol HCl (Tramadol HCl) 50 Mg Tablet, 50 MG PO Q6 PRN for SEVERE PAIN LEVEL 7-10, #20 TAB Prov:JOSHUA GOULD PULP BEATER 04/21/18 Reported Medications [none] Unknown Strength No Conflict Check 04/20/18 Allergies Allergies: Coded Allergies: pseudoephedrine (Verified Allergy, Unknown, 04/20/18) PMhx/Soc History of Surgery: Yes (c-sections x 3 ) Anesthesia Reaction: No Hx Neurological Disorder: No Hx Respiratory Disorders: No Hx Cardiac Disorders: No Hx Psychiatric Problems: No Hx Miscellaneous Medical Probl: Yes (GALLSTONES,UTI) Hx Alcohol Use: Yes (rare) Hx Substance Use: No Hx Tobacco Use: Yes (Quit early 2017) Smoking Status: Former smoker Physical Exam Vitals Vital Signs Date Temp Pulse Resp B/P (MAP) Pulse Ox O2 O2 Flow FiO2 Time Delivery Rate 04/29/19 97.8 67 18 129/67 98 Room Air 00:25 (87) 04/28/19 98.7 86 18 157/52 98 22:24 (87) Physical Exam Const: No acute distress Head: Atraumatic Eyes: Normal Conjunctiva ENT: Normal External Ears, Nose and Mouth. Neck: Full range of motion. No meningismus. Resp: Clear to auscultation bilaterally Cardio: Regular rate and rhythm, no murmurs Abd: Soft, non tender, non distended. Normal bowel sounds Skin: No petechiae or rashes Back: No midline or flank tenderness Ext: No cyanosis, or edema Neur: Awake and alert Psych: Normal Mood and Affect Result Diagram: 04/29/198 04/29/19 0018 Results 24 hrs Laboratory Tests Test 04/29/19 00:18 White Blood Count 6.7 10^3/ul Red Blood Count 4.58 10^6/ul Hemoglobin 13.2 g/dl Hematocrit 40.0 % Mean Corpuscular Volume 87.3 fl Mean Corpuscular Hemoglobin 28.8 pg Mean Corpuscular Hemoglobin Concent 33.0 g/dl Red Cell Distribution Width 13.1 % Platelet Count 281 10^3/UL Mean Platelet Volume 9.6 fl Immature Granulocytes % 0.100 % Neutrophils % 51.0 % Lymphocytes % 35.8 % Monocytes % 8.2 % Eosinophils % 4.6 % Basophils % 0.3 % Nucleated Red Blood Cells % 0.0 /100WBC Immature Granulocytes # 0.010 10^3/ul Neutrophils # 3.4 10^3/ul Lymphocytes # 2.4 10^3/ul Monocytes # 0.6 10^3/ul Eosinophils # 0.3 10^3/ul Basophils # 0.0 10^3/ul Nucleated Red Blood Cells # 0.0 10^3/ul Urine Color ANA PAULA Urine Clarity SLIGHTLY CLOUDY Urine pH 5.0 Urine Specific Benton 1.032 Urine Ketones 2+ mg/dL Urine Nitrite NEGATIVE mg/dL Urine Bilirubin NEGATIVE mg/dL Urine Urobilinogen NEGATIVE mg/dL Urine Leukocyte Esterase NEGATIVE Shun/ul Urine Microscopic RBC 13 /HPF Urine Microscopic WBC 3 /HPF Urine Squamous Epithelial Cells MANY /HPF Urine Mucus MANY /HPF Urine Hemoglobin 1+ mg/dL Urine Glucose NEGATIVE mg/dL Urine Total Protein NEGATIVE mg/dl Sodium Level 143 mmol/L Potassium Level 3.7 mmol/L Chloride Level 109 mmol/L Carbon Dioxide Level 25 mmol/L Anion Gap 9 Blood Urea Nitrogen 7 mg/dl Creatinine 0.67 mg/dl Est Glomerular Filtrat Rate mL/min > 60 mL/min Glucose Level 92 mg/dl Calcium Level 9.6 mg/dl Total Bilirubin 0.6 mg/dl Direct Bilirubin 0.00 mg/dl Indirect Bilirubin 0.6 mg/dl Aspartate Amino Transf (AST/SGOT) 30 IU/L Alanine Aminotransferase (ALT/SGPT) 41 IU/L Alkaline Phosphatase 84 IU/L Total Protein 7.0 g/dl Albumin 4.1 g/dl Globulin 2.90 g/dl Albumin/Globulin Ratio 1.41 Lipase 28 U/L Current Medications Medications Dose Sig/Danitza Start Time Status Last (Trade) Ordered Route PRN Stop Time Admin Dose Reason Admin Sodium 500 ml @ Q1H STAT 04/29/19 DC 04/29/19 Chloride 500 mls/hr IV 00:06 00:32 04/29/19 01:05 Morphine 4 mg ONCE STAT 04/29/19 DC 04/29/19 Sulfate IV 00:06 00:30 (morphine) 04/29/19 00:08 Ondansetron 4 mg ONCE STAT 04/29/19 DC 04/29/19 HCl (Zofran IV 00:06 00:30 Inj) 04/29/19 00:08 Procedures/MDM Patient's gastrointestinal symptoms have stabilized while in the department. No evidence of severe dehydration, sepsis, or surgical abdomen. Extensive discussion with family and patient that occult disease cannot be ruled out. 8 hour recheck for repeat abdominal exam is planned. Departure Diagnosis: Primary Impression: Abdominal pain Abdominal location: unspecified location Qualified Codes: R10.9 - Unspecified abdominal pain Condition: Stable Patient Instructions: Gallstones JEFF GUILLEN Apr 29, 2019 01:26
[2019-04-29 01:53] VITALS: BP 128/78; PULSE 69; RESP 18
== END 2019-04-29 02:14 | disposition home or self-care (01) ==
LOC: FTE 22:20 → E/R 04-29 02:14
DX: R10.11 Right upper quadrant pain (principal); R11.2 Nausea with vomiting, unspecified
CPT/HCPCS: 36415; 74176; 80053; 81001; 83690; 85025; 87086; 96374; 96375; J2270; J2405; J7040; Z7502

== ENCOUNTER 2019-06-28 01:20 | Emergency (ER) | payer OTHER ==
[~2019-06-28] VITALS: Ht 152.4 cm; Wt 96.4 kg
[~2019-06-28 01:20] MED LIST changes: +IBUP-1542 PO; +ONDA4TAB8 PO; +OXYC-279 PO
[2019-06-28 01:24] VITALS: Ht 152.4 cm; Wt 96.4 kg
[2019-06-28] MEDS ORDERED: ONDANSETRON 4 MG INJ IV STA (02:57)
[2019-06-28] MEDS ORDERED: KETOROLAC 15 MG INJ IV STA (02:57)
[2019-06-28] MEDS ORDERED: LIDOCAINE/MYLANTA 40 ML BTL PO STA (02:57)
[2019-06-28] MEDS ORDERED: BELLADONNA/PHENOBARBITAL TAB PO STA (02:57)
[2019-06-28] MEDS ORDERED: LACTATED RINGER'S 1,000 ML IV STA (02:57)
[2019-06-28] MEDS ORDERED: OXYCODONE/ACETAMINOPHEN (5/325) TAB PO ONE (04:00)
[2019-06-28 04:01] VITALS: BP 101/67; PULSE 71; RESP 16
== END 2019-06-28 04:01 | disposition home or self-care (01) ==
LOC: E/R 01:20
DX: K80.20 Calculus of gallbladder without cholecystitis without obstruction (principal); Z87.891 Personal history of nicotine dependence
CPT/HCPCS: 36415; 80053; 83690; 85025; 96374; 96375; J1885; J2405; J7120; Z7502; Z7610